=== PATIENT | female | born 1960 ===

== ENCOUNTER → 2017-09-08 | Outpatient (CLI) | payer OTHER | END | disposition home or self-care (01) | LOC: SONOGRAMA 10:40 | DX: Z12.31 Encounter for screening mammogram for malignant neoplasm of breast (principal); N60.19 Diffuse cystic mastopathy of unspecified breast; N60.11 Diffuse cystic mastopathy of right breast; N60.12 Diffuse cystic mastopathy of left breast; N83.291 Other ovarian cyst, right side; E55.9 Vitamin D deficiency, unspecified; R92.1 Mammographic calcification found on diagnostic imaging of breast; E66.3 Overweight; M89.9 Disorder of bone, unspecified; N95.2 Postmenopausal atrophic vaginitis; M25.511 Pain in right shoulder; N83.209 Unspecified ovarian cyst, unspecified side; N83.9 Noninflammatory disorder of ovary, fallopian tube and broad ligament, unspecified; N83.292 Other ovarian cyst, left side ==

== ENCOUNTER 2019-03-16 12:18 | Outpatient (CLI) | payer OTHER | END 2019-03-16 12:26 | disposition home or self-care (01) | LOC: MAMO-SONO 12:18 | DX: Z12.31 Encounter for screening mammogram for malignant neoplasm of breast (principal); Z87.898 Personal history of other specified conditions; N60.19 Diffuse cystic mastopathy of unspecified breast ==

== ENCOUNTER 2020-12-26 09:30 | Outpatient (CLI) | payer OTHER | END 2020-12-26 09:53 | disposition home or self-care (01) | LOC: MAMO-SONO 09:30 | PROVIDERS: ATTEND Obstetrics & Gynecology Gynecology | DX: N60.12 Diffuse cystic mastopathy of left breast (principal); N60.11 Diffuse cystic mastopathy of right breast; E55.9 Vitamin D deficiency, unspecified; Z12.31 Encounter for screening mammogram for malignant neoplasm of breast; R92.1 Mammographic calcification found on diagnostic imaging of breast; R68.82 Decreased libido; E66.3 Overweight; M89.8X8 Other specified disorders of bone, other site; N95.2 Postmenopausal atrophic vaginitis; M85.88 Other specified disorders of bone density and structure, other site; M81.0 Age-related osteoporosis without current pathological fracture ==

== ENCOUNTER 2021-02-08 13:04 | Outpatient (CLI) | payer OTHER | END 2021-02-08 13:09 | disposition home or self-care (01) | LOC: NUCLEAR 13:04 | PROVIDERS: ATTEND Internal Medicine Rheumatology | DX: M81.0 Age-related osteoporosis without current pathological fracture (principal) ==

== ENCOUNTER 2021-02-08 14:06 | Outpatient (CLI) | payer OTHER | END 2021-02-08 14:16 | disposition home or self-care (01) | LOC: RAD 14:06 | PROVIDERS: ATTEND Specialist | DX: M20.11 Hallux valgus (acquired), right foot (principal); M20.12 Hallux valgus (acquired), left foot ==

== ENCOUNTER 2021-09-27 13:36 | Outpatient (CLI) | payer OTHER | END 2021-09-27 13:48 | disposition home or self-care (01) | LOC: SONOGRAMA 13:36 | DX: L03.222 Acute lymphangitis of neck (principal) ==

== ENCOUNTER 2022-02-16 10:27 | Emergency (ER) | payer OTHER ==
[~2022-02-16] VITALS: Ht 162.6 cm; Wt 70.3 kg
== END 2022-02-16 12:26 | disposition home or self-care (01) ==
LOC: ER 10:27
DX: N61.1 Abscess of the breast and nipple (principal); Z85.42 Personal history of malignant neoplasm of other parts of uterus; S52.592A Other fractures of lower end of left radius, initial encounter for closed fracture; L65.9 Nonscarring hair loss, unspecified; E07.89 Other specified disorders of thyroid

== ENCOUNTER 2022-05-21 09:25 | Outpatient (CLI) | payer OTHER | END 2022-05-21 09:38 | disposition home or self-care (01) | LOC: MAMO-SONO 09:25 | PROVIDERS: ATTEND Obstetrics & Gynecology Gynecology | DX: N60.11 Diffuse cystic mastopathy of right breast (principal); N60.12 Diffuse cystic mastopathy of left breast; N83.209 Unspecified ovarian cyst, unspecified side; N83.292 Other ovarian cyst, left side; N83.291 Other ovarian cyst, right side ==

== ENCOUNTER → 2023-01-08 | Outpatient (CLI) | payer OTHER | END | disposition home or self-care (01) | LOC: SONOGRAMA 10:22 | PROVIDERS: ATTEND Obstetrics & Gynecology Gynecology | DX: R31.9 Hematuria, unspecified (principal); N20.0 Calculus of kidney; R31.21 Asymptomatic microscopic hematuria; N83.292 Other ovarian cyst, left side; N83.291 Other ovarian cyst, right side ==

== ENCOUNTER 2023-08-07 14:20 | Outpatient (CLI) | payer OTHER | END 2023-08-07 14:21 | disposition home or self-care (01) | LOC: NUCLEAR 14:20 | PROVIDERS: ATTEND Internal Medicine Rheumatology | DX: M81.0 Age-related osteoporosis without current pathological fracture (principal) ==

== ENCOUNTER 2024-01-01 10:25 | Outpatient (CLI) | payer OTHER | END 2024-01-01 10:29 | disposition home or self-care (01) | LOC: MAMO-SONO 10:25 | DX: N60.01 Solitary cyst of right breast (principal); N60.02 Solitary cyst of left breast ==

== ENCOUNTER 2024-03-12 12:18 | Outpatient (CLI) | payer OTHER | END 2024-03-12 12:26 | disposition home or self-care (01) | LOC: SONOGRAMA 12:18 | PROVIDERS: ATTEND Surgery | DX: N60.11 Diffuse cystic mastopathy of right breast (principal); N60.12 Diffuse cystic mastopathy of left breast; M25.512 Pain in left shoulder ==